=== PATIENT | female | born 1990 | race Caucasian/White ===

== ENCOUNTER 2018-11-15 17:23 | Emergency (ER) | payer OTHER ==
[~2018-11-15] VITALS: Ht 165.1 cm; Wt 74.8 kg
[2018-11-15] MEDS ORDERED: TAMIFLU75 MG PO (18:35)
[2018-11-15] MEDS ORDERED: ZOFRAN4 MG PO (21:08)
== END 2018-11-15 21:18 | disposition home or self-care (01) ==
LOC: ED 17:23
DX: J11.1 Influenza due to unidentified influenza virus with other respiratory manifestations (principal); Z79.899 Other long term (current) drug therapy
CPT/HCPCS: 71046; 80053; 81001; 84703; 85025; 96361; 96374; 99283-25; J2405; J7040

== ENCOUNTER 2019-10-13 10:49 | Inpatient (IN) | payer OTHER ==
[~2019-10-13] VITALS: Ht 165.1 cm; Wt 93.0 kg
[~2019-10-13 10:49] MED LIST: TAMIFLU75 MG PO; ZOFRAN4 MG PO
--- NOTE | 2019-10-13 15:28 | NUR ---
10/13/19 1528 Sheets,Yareli 1440 PT ARRIVED TO ROOM 105 AWAKE AND VSS. PT REPORTS PAIN 7/10 AND CRAMPING. AT BEDSIDE AND PT HOB INCREASED SLIGHTLY. PT EDUCATION GIVEN ON SPINAL/BP AND CRAMPING AND FUNDAL CHECKS. PLAN OF CARE DISCUSSED. FBC RN AT BEDSIDE. IV FLUIDS INFUSING LR WITH 30 OF PIT. 1445 PT HOLDING BABY. VSS. PAIN CONTINUES TO BE 7/10. 1455 PAIN MEDICATION GIVEN PER EMAR. MOSER AT BEDSIDE. 1510 VSS. PT REPORTS PAIN IS TOELRABLE AND "GOING DOWN." REPORT TO FBC RN.
--- NOTE | 2019-10-13 17:47 | OR ---
[facility] [address] [place], [place] [address] Signed DATE OF OPERATION: 10/13/2019 SURGEON: Hugh Marie MD Patient of Dr. Marie. PREOPERATIVE DIAGNOSES: Preeclampsia with severe features, previous section, and term . POSTOPERATIVE DIAGNOSES: Preeclampsia with severe features, previous section, and term . PROCEDURE: Repeat low transverse segment section, delivery of live female infant. MANUFACTURING ASSOCIATE: Dr. Potts. ANESTHESIA: Spinal. ESTIMATED BLOOD LOSS: 700 mL. COMPLICATIONS: None. DRAINS: Mccracken to bladder. FINDINGS: Live female infant, Apgars 9 and 9. Weight 7 pounds 2 ounces. Normal uterus, normal tubes and ovaries bilateral. There was one omental adhesion to the midline anterior abdominal wall just below the level of the umbilicus and the bladder flap was elevated in the midline. No other masses or adhesions seen. DESCRIPTION OF PROCEDURE: The patient was brought to the operating room, spinal anesthesia placed, placed in supine position, and prepped and draped in usual sterile fashion. Mccracken catheter was placed in the bladder. A Pfannenstiel skin incision was made through previous surgical Electronically Signed By: HUGH MARIE MD 10/13/19 1747 PATIENT NAME: CHRISTAL RANDLE OPERATIVE REPORT DATE OF : [birth year] REPORT #: [id number] PHYSICIAN: HUGH MARIE MD PCP: RADHA CONN REPORT IS CONFIDENTIAL AND NOT TO BE RELEASED WITHOUT AUTHORIZATION [facility] [address] [facility] [place], [place] [address] Signed scar using a scalpel. Subcutaneous tissue was dissected with the scalpel and Bovie. The fascia was nicked with scalpel and extended in transverse fashion using curved scissors. The underlying abdominal musculature was bluntly and sharply along the midline. The peritoneum was grasped, nicked with scissors and extended in vertical fashion using curved scissors. The Adrián self-retaining retractor was inserted into the incision and tightened in place. The lower uterine segment was noted to have elevated bladder flap, which was rather filmy in the midportion, so this was taken down with Metzenbaum scissors and pushed down below the level of dissection. The lower uterine segment was then carefully nicked with scalpel. Bulging bag of fluid came from the incision. This was opened when the incision was extended in a transverse fashion using finger dissection. The was noted to be in the vertex CHERELLE presentation. The head was easily delivered from the incision. Nuchal cord was around the neck once loosely. This was removed and the rest of the infant easily delivered from the incision. The cord was doubly clamped and cut while the infant was placed in prone head down position to help with amniotic fluid drainage and the passed off table in good condition to awaiting nurse. The placenta was manually removed. Uterine cavity explored with a lap pad to remove any retained membranes. An angle stitch of 0 Monocryl was placed at one end of the incision and a running locking stitch of 0 Monocryl starting at the other end used to close the incision. A 2nd running stitch of 0 Monocryl was used to imbricate the 1st layer. There was small amount of bleeding at the left angle. This was controlled with a simple stitch of 0 Monocryl. The entire pelvis was irrigated, suctioned, and examined. Any bleeding spots including the raw edges from the bladder flap peritoneum dissection were cauterized with Bovie. When good hemostasis was obtained, the Adrián self-retaining retractor was removed. The omental adhesion was grasped with two Myra clamps, cut with scissors. This was done against the anterior abdominal wall. Two pedicles tied with reel of 2-0 chromic suture. Good hemostasis was noted. Sheet of ACell was placed over the lower uterine segment to help with healing and then the anterior wall peritoneum closed using running stitch of 2-0 Vicryl suture. Abdominal musculature was reapproximated using interrupted stitches of 0 Vicryl suture. The abdominal wall incision was irrigated, suctioned, and examined. Any bleeding spots cauterized with the Bovie when good hemostasis was obtained. The fascia was closed using two running stitch of 0 Vicryl suture meeting in the midline. Subcutaneous tissue was irrigated, suctioned, examined, and any bleeding spots cauterized with the Bovie. Subcutaneous tissue was sprinkled with powdered ACell to help with healing and then closed using interrupted stitches of 3-0 Vicryl suture. The skin was reapproximated using skin clips. The patient tolerated the procedure well, went to recovery room in good condition. The sponge, needle, and instrument count correct at the end of procedure. Electronically Signed By: HUGH MARIE MD 10/13/19 1747 PATIENT NAME: CHRISTAL RANDLE OPERATIVE REPORT DATE OF : [birth year] REPORT #: [id number] PHYSICIAN: HUGH MARIE MD PCP: RADHA CONN REPORT IS CONFIDENTIAL AND NOT TO BE RELEASED WITHOUT AUTHORIZATION [facility] [address] [place], [place] [address] Signed MD CAESAR Trujillo/DANNIEL /[id number] Copies: ~ Electronically Signed By: HUGH MARIE MD 10/13/19 1747 PATIENT NAME: CHRISTAL RANDLE OPERATIVE REPORT DATE OF : [birth year] REPORT #: [id number] PHYSICIAN: HUGH MARIE MD PCP: RADHA CONN REPORT IS CONFIDENTIAL AND NOT TO BE RELEASED WITHOUT AUTHORIZATION
--- NOTE | 2019-10-14 12:17 | PR ---
[facility] [address] [facility] [place], [place] [address] Signed PP Progress Notes Datetime Report Generated by CPN: 10/14/2019 12:17 SUBJECTIVE: [id number] Pain: Within normal limits Nausea/Vomiting: Denies Vital Signs: [id number] Vital Signs: Reviewed; Within Normal Limits EXAM: [id number] Abdomen/Uterus: Normal Lochia: Normal Extremities: Normal Incision: Normal Exam Comments: DTR's 1+ IMPRESSION/PLAN/PROCEDURES: [id number] Impression: Normal progression Plan: Continue present management Procedures: None Progress Notes: Doing well without complaint. Will d/c MagSO4, increase diet and activity, may shower. continue to watch BP Signing Physician: Anival Figueredo MD Copies: ~ *Electronically Signed* 10/14/19 1217 ANIVAL FIGUEREDO MD PATIENT NAME: CHRISTAL RANDLE PROGRESS NOTE DATE OF : [birth year] PHYSICIAN: ANIVAL FIGUEREDO MD RPT #: [id number] REPORT IS CONFIDENTIAL AND NOT TO BE RELEASED WITHOUT AUTHORIZATION
--- NOTE | 2019-10-15 13:05 | PR ---
[facility] [address] [facility] [place], [place] [address] Signed PP Progress Notes Datetime Report Generated by CPN: 10/15/2019 13:05 SUBJECTIVE: [id number] Pain: Within normal limits Nausea/Vomiting: Denies Vital Signs: [id number] Vital Signs: Reviewed; Within Normal Limits Notable Details: PP Hgb/Hct = 8.7/26.7 EXAM: [id number] Abdomen/Uterus: Normal Lochia: Normal Extremities: Normal Incision: Normal Exam Comments: DTR's 1+ IMPRESSION/PLAN/PROCEDURES: [id number] Impression: Normal progression Plan: Discharge Procedures: None Progress Notes: Doing well, without complaint, wants to go home Signing Physician: Anival Figueredo MD Copies: ~ *Electronically Signed* 10/15/19 1305 NAIVAL FIGUEREDO MD PATIENT NAME: CHRISTAL RANDLE PROGRESS NOTE DATE OF : [birth year] PHYSICIAN: ANIVAL FIGUEREDO MD RPT #: [id number] REPORT IS CONFIDENTIAL AND NOT TO BE RELEASED WITHOUT AUTHORIZATION
== END 2019-10-15 13:25 | disposition home or self-care (01) | DRG 788 ==
LOC: FBCO 10:49 → FBC 12:15
PROVIDERS: ADMIT General Practice
PROC: 10D00Z1 Extraction of Products of Conception, Low, Open Approach (ICD-10-PCS; principal; 2019-10-13 14:30)
PROC: 3E0234Z Introduction of Serum, Toxoid and Vaccine into Muscle, Percutaneous Approach (ICD-10-PCS; 2019-10-14)
DX: O34.211 Maternal care for low transverse scar from previous cesarean delivery (principal); N85.8 Other specified noninflammatory disorders of uterus; O14.14 Severe pre-eclampsia complicating childbirth; O69.81X0 Labor and delivery complicated by cord around neck, without compression, not applicable or unspecified; Z37.0 Single live birth; Z3A.38 38 weeks gestation of pregnancy; O90.81 Anemia of the puerperium; D64.9 Anemia, unspecified; O34.43 Maternal care for other abnormalities of cervix, third trimester; O26.893 Other specified pregnancy related conditions, third trimester; Z67.41 Type O blood, Rh negative
CPT/HCPCS: 01961; 36415; 59025; 82565; 82570; 83030; 83735; 84156; 84450; 84520; 84550; 85025; 85027; 86850; 86870; 86886; 86900; 86901; 99212; A9270; J0690; J1885; J2175; J2274; J2300; J2370; J2405; J2550; J2590; J2765; J2790; J3010; J3475; J7121

== ENCOUNTER 2020-11-22 14:09 | Inpatient (IN) | payer OTHER ==
[~2020-11-22] VITALS: Ht 165.1 cm; Wt 97.5 kg
--- NOTE | 2020-11-22 17:00 | NUR ---
both nares swabbed for covid-19 without complication. sample taken to [facility] for rapid testing.
--- NOTE | 2020-11-22 19:46 | NUR ---
11/22/201945 Hermelinda Early 193: PT ARRIVES TO ROOM 104 FBC. SHE IS AWAKE, BABY PUT SKIN TO SKIN WITH MOM. AND MIL AT THE BEDSIDE.
--- NOTE | 2020-11-23 13:26 | PR ---
[facility] [address] [place], [place] [address] Signed PP Progress Notes Datetime Report Generated by CPN: 11/23/2020 13:26 SUBJECTIVE: [id number] Pain: Within Normal Limits Nausea/Vomiting: Denies Vital Signs: [id number] Vital Signs: Reviewed; Within Normal Limits Notable Details: PP Hgb/Hct = 8.5/26.7 K+ = 2.9 Abdomen/Uterus: Normal Lochia: Normal Extremities: Normal Incision: Normal IMPRESSION/PLAN/PROCEDURES: [id number] Impression: Normal Progression Other Impression: Hypokalemia, Anemia Progress Notes: doing well, KC's gone, wants to get up out of bed, no dizziness or palpitations BP stable D/C MagSO4, IV and Mccracken, increase activity as tolerated Already started on oral K+ TID; will recheck K+ in am Will give Feraheme IV today; rechekc CBC in am Signing Physician: Anival Marie MD Copies: ~ *Electronically Signed* 11/23/20 1326 ANIVAL MARIE MD PATIENT NAME: CHRISTAL RANDLE PROGRESS NOTE DATE OF : [birth year] PHYSICIAN: ANIVAL MARIE MD RPT #: [id number] REPORT IS CONFIDENTIAL AND NOT TO BE RELEASED WITHOUT AUTHORIZATION
--- NOTE | 2020-11-23 13:29 | OR ---
[facility] [address] [place], [place] [address] Signed DATE OF OPERATION: 11/22/2020 SURGEON: Hugh Marie MD PREOPERATIVE DIAGNOSES: 1. Preeclampsia with severe features. 2. Previous section x2 and sterilization. POSTOPERATIVE DIAGNOSES: 1. Preeclampsia with severe features. 2. Previous section x2 and sterilization. PROCEDURE: Repeat low transverse segment section, delivery of live male, bilateral tubal ligation. OBGYN HOSPITALIST PHYSICIAN: Dr. Voss. ANESTHESIA: Spinal. ESTIMATED BLOOD LOSS: 500 mL. COMPLICATIONS: None. DRAINS: Mccracken to bladder. FINDINGS: Normal term uterus. Normal tubes and ovaries bilateral. Live male infant, Apgars 9 and 9, weight 6 pounds 14 ounces, large amount of clear fluid in the uterine cavity. DESCRIPTION OF PROCEDURE: The patient was brought to the operating room, placed in the supine position. After adequate spinal anesthesia was obtained, was prepped and draped in usual sterile fashion. Mccracken catheter was placed in the bladder. A Pfannenstiel skin incision was made through previous surgical scar using a scalpel. Subcutaneous tissue was dissected Electronically Signed By: HUGH MARIE MD 11/23/20 1329 PATIENT NAME: CHRISTAL RANDLE OPERATIVE REPORT DATE OF : [birth year] REPORT #: [id number] PHYSICIAN: HUGH MARIE MD PCP: JAMIR PURDY DO REPORT IS CONFIDENTIAL AND NOT TO BE RELEASED WITHOUT AUTHORIZATION [facility] [address] [place], [place] [address] Signed with the Bovie and the scalpel. The fascia was nicked with scalpel and extended in transverse fashion using curved scissors. The underlying abdominal musculature was bluntly and sharply from the fascia above and below the incision. The abdominal musculature was grasped with hemostats, elevated, nicked with scissors and extended in vertical fashion using Metzenbaum scissors. The peritoneum was opened with scissors and extended in vertical fashion using curved scissors. The Adrián self-retaining retractor was inserted into the incision and tightened in place. The lower uterine segment was observed and noted to be quite thin, but no actual window seen. The lower uterine segment was carefully nicked with scalpel and extended finger dissection in transverse fashion. Bulging bag of clear fluid came from the incision. This was opened with pickups with teeth and the infant was noted to be in vertex CHERELLE presentation. The head and hand came out same time. The hand was gently pushed back and the head easily delivered. The rest of the was easily delivered from the incision. The cord was doubly clamped and cut. The passed off table in good condition to the awaiting medical massage therapist. The placenta was manually removed and uterine cavity explored with a lap pad to remove any retained membranes. An angle stitch of 0 Monocryl placed at one end of the incision and a running locking stitch of 0 Monocryl starting at the other end used to close the incision. A 2nd running stitch of 0 Monocryl was used to imbricate the 1st layer. Good hemostasis was noted, so the pelvis was irrigated, suctioned, and noted to have good hemostasis. The left fallopian tube was grasped near an avascular portion of mesosalpinx and the mesosalpinx opened with the Bovie. Two ligatures of 0 chromic suture were passed through the opening and the tube tied proximal and distal to the clamp. The intervening fallopian tube was cut with Metzenbaum scissors and the two pedicle stumps cauterized with the Bovie. The segment of fallopian tube was passed off the table. The same procedure was completed on the right side, grasping the midportion of the tube with a Sudheer clamp, making a small opening in an avascular portion of the mesosalpinx using the Bovie. Two ligatures of 0 chromic suture passed through the opening and ligating the tube proximal and distal to the clamp and removing the intervening portion of tube with Metzenbaum scissors and the two pedicle ends cauterized with the Bovie. Good hemostasis was noted on both, uterus placed back in the abdomen. Again, the entire pelvis was irrigated, suctioned, and examined, noted to have good hemostasis. There was one small band of omentum on upper left side of the anterior abdominal wall. This was clamped with two Myra clamps, cut with scissors and each pedicle free tied with 0 chromic suture. A sheet of ACell was placed over the lower uterine segment and then the peritoneum closed using running stitch of 2-0 Vicryl suture. The abdominal musculature was reapproximated using interrupted stitches of 0 Vicryl suture. The entire abdominal wall incision was irrigated, suctioned and examined and any bleeding spots were cauterized with the Bovie. When good hemostasis was obtained, powdered ACell was sprinkled over the abdominal musculature and the fascia closed using two running stitches of 0 Vicryl suture. The subcutaneous tissue was irrigated, suctioned, and examined and any bleeding spots were Electronically Signed By: HUGH MARIE MD 11/23/20 1329 PATIENT NAME: CHRISTAL RANDLE OPERATIVE REPORT DATE OF : [birth year] REPORT #: [id number] PHYSICIAN: HUGH MARIE MD PCP: JAMIR PURDY DO REPORT IS CONFIDENTIAL AND NOT TO BE RELEASED WITHOUT AUTHORIZATION [address] [place], [place] [address] Signed cauterized with the Bovie. Subcutaneous tissue was then closed using interrupted stitches of 3-0 Vicryl suture and the skin reapproximated using skin clips. The patient tolerated the procedure well, went to recovery room in good condition. The sponge, needle, and instrument count were correct at the end of the procedure. Two segments of fallopian tube were sent to Pathology for identification. Hugh Marie MD MJB/MODL /[id number] Copies: ~ Electronically Signed By: HUGH MARIE MD 11/23/20 1329 PATIENT NAME: CHRISTAL RANDLE OPERATIVE REPORT DATE OF : [birth year] REPORT #: [id number] PHYSICIAN: HUGH MARIE MD PCP: JAMIR PURDY DO REPORT IS CONFIDENTIAL AND NOT TO BE RELEASED WITHOUT AUTHORIZATION
--- NOTE | 2020-11-24 10:38 | PR ---
[facility] [address] [place] [address] Signed PP Progress Notes Datetime Report Generated by CPN: 11/24/2020 10:38 SUBJECTIVE: [id number] Pain: Within Normal Limits Nausea/Vomiting: Denies Vital Signs: [id number] Vital Signs: Reviewed; Within Normal Limits Notable Details: K+ = 3.5 Abdomen/Uterus: Normal Lochia: Normal Extremities: Normal Incision: Normal IMPRESSION/PLAN/PROCEDURES: [id number] Impression: Normal Progression Other Impression: PP Anemia Plan: Discharge Procedures: None Progress Notes: Doing well, without complaint, ready to go home. Received IV Feraheme yesterday. Signing Physician: Anival Figueredo MD Copies: ~ *Electronically Signed* 11/24/20 [facility] ANIVAL FIGUEREDO MD PATIENT NAME: CHRISTAL RANDLE PROGRESS NOTE DATE OF : [birth year] PHYSICIAN: ANIVAL FIGUEREDO MD RPT #: [id number] REPORT IS CONFIDENTIAL AND NOT TO BE RELEASED WITHOUT AUTHORIZATION
== END 2020-11-24 15:30 | disposition home or self-care (01) | DRG 783 ==
LOC: FBCO 14:09 → FBC 16:45
PROVIDERS: ADMIT General Practice; ATTEND General Practice
PROC: 0UB70ZZ Excision of Bilateral Fallopian Tubes, Open Approach (ICD-10-PCS; 2020-11-22)
PROC: 10D00Z1 Extraction of Products of Conception, Low, Open Approach (ICD-10-PCS; principal; 2020-11-22 18:21)
DX: O34.211 Maternal care for low transverse scar from previous cesarean delivery (principal); O60.13X0 Preterm labor second trimester with preterm delivery third trimester, not applicable or unspecified; N85.8 Other specified noninflammatory disorders of uterus; Z37.0 Single live birth; O14.14 Severe pre-eclampsia complicating childbirth; Z30.2 Encounter for sterilization; O90.81 Anemia of the puerperium; D64.9 Anemia, unspecified; Z3A.36 36 weeks gestation of pregnancy; O99.284 Endocrine, nutritional and metabolic diseases complicating childbirth; E87.6 Hypokalemia; Z79.82 Long term (current) use of aspirin
CPT/HCPCS: 01961; 36415; 59025; 76818; 80053; 82565; 82570; 83030; 83735; 84132; 84156; 84450; 84520; 84550; 85025; 85027; 86850; 86870; 86900; 86901; A9270; C9803; J0690; J1170; J1200; J2001; J2175; J2274; J2300; J2370; J2405; J2550; J2590; J2790; J3010; J3475; J7121; Q0138; U0003